=== PATIENT | female | born 1990 | race Caucasian/White ===

== ENCOUNTER 2018-12-23 20:35 | Emergency (ER) | payer MEDICAID, OTHER ==
[~2018-12-23] VITALS: Ht 157.5 cm; Wt 62.7 kg
[~2018-12-23 20:35] MED LIST: COROTSUS OT; HYDR-4383 PO; LACT1CAP57 PO
[2018-12-23] MEDS ORDERED: CefTRIAXone/D5W-Rocephin 1gm 50 ML IV ONE (22:30)
[2018-12-23] MEDS ORDERED: azithromycin/NS 500mg/250ml 250 ML IV ONE (22:30)
[2018-12-23 22:58] LABS: BASOPHILS % (AUTO) 0.3 % (0-1); EOSINOPHILS # (AUTO) 0.1 X10'3 (0-0.9); EOSINOPHILS % (AUTO) 1.2 % (0-6); HEMATOCRIT 36.7 % (35.0-45.0); LYMPHOCYTES # (AUTO) 1.4 X10'3 (1.1-4.8); LYMPHOCYTES % (AUTO) 14.2 % (21-51); MEAN CORPUSCULAR HEMOGLOBIN 33.6 PG (27.0-31.0); MEAN CORPUSCULAR HGB CONC 35.4 g/dL (33.0-36.5); MEAN CORPUSCULAR VOLUME 94.9 FL (78-98); MEAN PLATELET VOLUME 7.1 FL (7.4-10.4); MONOCYTES # (AUTO) 0.9 X10'3 (0-0.9); MONOCYTES % (AUTO) 8.9 % (2-12); NEUTROPHILS # (AUTO) 7.7 X10'3 (1.8-7.7); NEUTROPHILS % (AUTO) 75.4 % (42-75); PLATELET COUNT 246 X10'3 (140-440); RED BLOOD COUNT 3.87 X10'6 (4.20-5.60); RED CELL DISTRIBUTION WIDTH 11.5 % (11.5-14.5); WHITE BLOOD COUNT 10.2 X10'3 (4.5-11.0)
[2018-12-23 23:10] LABS: CLARITY,URINE SLIGHTLY CLOUDY (Clear); COLOR,URINE YELLOW (Yellow); GLUCOSE, URINE NEGATIVE (Neg); KETONES,URINE NEGATIVE (Neg); LEUKOCYTE ESTERASE ,URINE NEGATIVE (Neg); NITRITES, URINE POSITIVE (Neg); OCCULT BLOOD,URINE NEGATIVE (Neg); PROTEIN,URINE 30 mg/dl (Neg)
[2018-12-23 23:11] LABS: UA COLLECTION TYPE CLN CATCH MIDSTREAM
[2018-12-23 23:12] LABS: ALANINE AMINOTRANSFERASE 29 U/L (12-78); ALBUMIN 3.5 G/DL (3.4-5.0); ALBUMIN/GLOBULIN RATIO 0.8 (1.1-1.5); ALKALINE PHOSPHATASE 53 IU/L (46-116); ANION GAP 8 (8-16); ASPARTATE AMINO TRANSFERASE 13 U/L (10-37); BILIRUBIN,TOTAL 0.3 MG/DL (0.1-1.0); BLOOD UREA NITROGEN 9 MG/DL (7-18); BUN/CREATININE RATIO 10.1 (6.6-38.0); CALCIUM 9.2 MG/DL (8.5-10.1); CHLORIDE 97 MMOL/L (99-107); CREATININE 0.89 MG/DL (0.40-0.90); GLUCOSE 135 MG/DL (70-104); POTASSIUM 3.7 MMOL/L (3.5-5.1); SODIUM 132 MMOL/L (135-145); TOTAL CARBON DIOXIDE 27.4 MMOL/L (24-32); eGFR 75 ML/MIN
[2018-12-23 23:20] LABS: BACTERIA,URINE 3+ /HPF (Neg); RBC,URINE NONE SEEN /HPF (0-2); SQUAMOUS EPITHELIAL CELL,UR MODERATE /LPF (FEW); WBC,URINE 0-4 /HPF (0-4)
[2018-12-23 23:21] LABS: MUCUS STRANDS NONE SEEN /LPF (Neg)
[2018-12-23] MEDS ORDERED: ondansetron/PF 4mg/2ml inj IV ONE (23:35)
[2018-12-23] MEDS ORDERED: LEVO750T21 PO (23:55)
[2018-12-24] MEDS ORDERED: acetaminophen 325mg tablet PO ONE (00:10)
[2018-12-24] MEDS ORDERED: ketorolac trometh. 30mg/ml inj. IV ONE (00:15)
[2018-12-24 00:55] VITALS: BP 123/80
--- NOTE | 2018-12-24 00:57 | NUR ---
DR. RUFF NOTIFIED OF UPDATED VITAL SIGNS AND IMPROVEMENT OF PATIENT'S SYMPTOMS AFTER TREATMENT AND PRIOR TO DISCHARGE.
== END 2018-12-24 00:57 | disposition home or self-care (01) ==
LOC: ER 20:36
DX: J18.1 Lobar pneumonia, unspecified organism (principal); Z56.0 Unemployment, unspecified; Z59.0 Homelessness; Z79.899 Other long term (current) drug therapy
CPT/HCPCS: 36415; 71045; 80053; 81001; 84145; 85025; 87077; 87088; 87186; 96365; 96367; 96375; 99284; J0456; J0696; J1885; J2405